=== PATIENT | male | born 1980 | race African-American/Black ===

== ENCOUNTER 2025-05-14 21:51 | Emergency (ER) | payer MEDICAID ==
[~2025-05-14] VITALS: Ht 177.8 cm; Wt 63.5 kg
[2025-05-14 21:54] VITALS: O2SAT 100
[2025-05-14 22:08] VITALS: BP 124/90; PULSE 93; RESP 16; TEMP 36.7; O2SAT 99
[2025-05-14] MEDS: KETOROLAC 15MG/ML VIAL IM ONE (23:47)
== END 2025-05-15 00:28 | disposition left against medical advice (07) ==
LOC: ER 21:51
DX: M25.562 Pain in left knee (principal); M79.89 Other specified soft tissue disorders
CPT/HCPCS: 73560; 99283